=== PATIENT | female | born 1950 | race Two or more races ===

== ENCOUNTER 2017-11-10 09:40 | Outpatient (CLI) | payer OTHER | END 2017-11-10 11:50 | disposition home or self-care (01) | LOC: RAD 09:40 | DX: Z12.31 Encounter for screening mammogram for malignant neoplasm of breast (principal); Z87.898 Personal history of other specified conditions; N64.89 Other specified disorders of breast; Z86.73 Personal history of transient ischemic attack (TIA), and cerebral infarction without residual deficits; I25.2 Old myocardial infarction ==

== ENCOUNTER 2018-07-29 13:09 | Emergency (ER) | payer OTHER ==
[~2018-07-29] VITALS: Ht 152.4 cm; Wt 70.8 kg
[2018-07-29] MEDS ORDERED: ARED2 (13:17)
[2018-07-29] MEDS ORDERED: ASA81 MG PO (13:17)
== END 2018-07-29 21:46 | disposition home or self-care (01) ==
LOC: ER 13:09
DX: J06.9 Acute upper respiratory infection, unspecified (principal)

== ENCOUNTER 2020-01-11 14:43 | Emergency (ER) | payer OTHER ==
[~2020-01-11] VITALS: Ht 152.4 cm; Wt 72.6 kg
[~2020-01-11 14:43] MED LIST: ARED2; ASA81 MG PO
== END 2020-01-11 18:15 | disposition home or self-care (01) ==
LOC: ER 14:43
DX: H00.035 Abscess of left lower eyelid (principal); H00.034 Abscess of left upper eyelid

== ENCOUNTER 2020-12-21 13:25 | Outpatient (CLI) | payer OTHER | END 2020-12-21 13:26 | disposition home or self-care (01) | LOC: NUCLEAR 13:25 | PROVIDERS: ATTEND Internal Medicine | DX: M54.5 Low back pain (principal); M81.0 Age-related osteoporosis without current pathological fracture ==

== ENCOUNTER 2020-12-21 14:13 | Outpatient (CLI) | payer OTHER | END 2020-12-21 14:28 | disposition home or self-care (01) | LOC: MAMO-SONO 14:13 | PROVIDERS: ATTEND Internal Medicine | DX: R92.0 Mammographic microcalcification found on diagnostic imaging of breast (principal); Z12.31 Encounter for screening mammogram for malignant neoplasm of breast; E03.8 Other specified hypothyroidism; I10 Essential (primary) hypertension ==

== ENCOUNTER 2021-02-20 10:21 | Outpatient (CLI) | payer OTHER | END 2021-02-20 10:33 | disposition home or self-care (01) | LOC: SONOGRAMA 10:21 | PROVIDERS: ATTEND Internal Medicine | DX: K80.80 Other cholelithiasis without obstruction (principal); N60.11 Diffuse cystic mastopathy of right breast; N60.12 Diffuse cystic mastopathy of left breast; I10 Essential (primary) hypertension; E03.8 Other specified hypothyroidism; E78.89 Other lipoprotein metabolism disorders; E55.9 Vitamin D deficiency, unspecified; G62.89 Other specified polyneuropathies; H54.8 Legal blindness, as defined in USA; K80.12 Calculus of gallbladder with acute and chronic cholecystitis without obstruction; K80.20 Calculus of gallbladder without cholecystitis without obstruction; Z13.820 Encounter for screening for osteoporosis; M54.59 Other low back pain ==

== ENCOUNTER 2021-02-23 05:02 | Emergency (ER) | payer OTHER ==
[~2021-02-23] VITALS: Ht 152.4 cm; Wt 90.7 kg
[2021-02-23] MEDS ORDERED: LEVSIN/SL0.125 MG SL (11:32)
[2021-02-23] MEDS ORDERED: KETO10TA2 PO (11:32)
[2021-02-23] MEDS ORDERED: PEPCID AC20 MG PO (11:32)
[2021-02-23] MEDS ORDERED: TAMS0.4C PO (11:37)
== END 2021-02-23 13:39 | disposition home or self-care (01) ==
LOC: ER 05:02
DX: K80.20 Calculus of gallbladder without cholecystitis without obstruction (principal); N20.1 Calculus of ureter; R10.32 Left lower quadrant pain

== ENCOUNTER 2021-04-02 08:16 | Outpatient (CLI) | payer OTHER ==
[~2021-04-02 08:16] MED LIST changes: +KETO10TA2 PO; +LEVSIN/SL0.125 MG SL; +PEPCID AC20 MG PO; +TAMS0.4C PO
[2021-04-03] MEDS ORDERED: VITAMIN D310 MCG/1 M (13:39)
[2021-04-03] MEDS ORDERED: [UNRECOGNIZED DRUG - OTHER] (13:39)
== END 2021-04-02 08:20 | disposition home or self-care (01) ==
LOC: SONOGRAMA 08:16
PROVIDERS: ATTEND Specialist
DX: N28.89 Other specified disorders of kidney and ureter (principal); N20.1 Calculus of ureter

== ENCOUNTER 2021-04-02 10:40 | Outpatient (CLI) | payer OTHER ==
[2021-04-03] MEDS ORDERED: VITAMIN D310 MCG/1 M (13:39)
[2021-04-03] MEDS ORDERED: [UNRECOGNIZED DRUG - OTHER] (13:39)
== END 2021-04-02 10:50 | disposition home or self-care (01) ==
LOC: LAB 10:40
PROVIDERS: ATTEND Specialist
DX: K80.10 Calculus of gallbladder with chronic cholecystitis without obstruction (principal); Z01.812 Encounter for preprocedural laboratory examination

== ENCOUNTER 2021-04-05 04:45 | Inpatient (IN) | payer OTHER ==
[~2021-04-05 04:45] MED LIST changes: +VITAMIN D310 MCG/1 M; +[UNRECOGNIZED DRUG - OTHER]
== END 2021-04-06 18:01 | DRG 419 ==
LOC: CIR.AMB 04:45 → O/R 10:24 → SURG 10:24 → CIR.AMB 10:38 → SURG 04-06 18:01
PROVIDERS: ADMIT Specialist; ATTEND Specialist
PROC: BF53200 Other Imaging of Gallbladder and Bile Ducts using Fluorescing Agent, Indocyanine Green Dye, Intraoperative (ICD-10-PCS; 2021-04-05)
PROC: 0FT44ZZ Resection of Gallbladder, Percutaneous Endoscopic Approach (ICD-10-PCS; principal; 2021-04-05 07:00)
DX: K80.10 Calculus of gallbladder with chronic cholecystitis without obstruction (principal); R33.8 Other retention of urine